=== PATIENT | female | born 1975 | race American Indian/Alaskan Native ===

== ENCOUNTER 2021-08-04 21:44 | Emergency (ER) | payer OTHER ==
--- NOTE | 2021-08-05 02:00 | Vascular Lab Report ---
DUPLEX DOPPLER LOWER EXTREMITY VEINS, BILATERAL INDICATION / CLINICAL INFORMATION: Non traumatic pain to left thigh, Hx DVT. TECHNIQUE: Duplex doppler imaging was performed through the veins of both lower extremities using katina ous compression and other maneuvers. COMPARISON: None available. FINDINGS: RIGHT COMMON FEMORAL VEIN: Negative. RIGHT FEMORAL VEIN: Negative. RIGHT POPLITEAL VEIN: Negative. RIGHT CALF VEINS: Negative. LEFT COMMON FEMORAL VEIN: Negative. LEFT FEMORAL VEIN: Negative. LEFT POPLITEAL VEIN: Negative. LEFT CALF VEINS: Negative. ADDITIONAL FINDINGS: None. IMPRESSION: 1. No sonographic evidence for DVT in either lower extremity. Signer Name: Ar Baker II, MD Signed: 08/05/2021 1:55 AM Workstation Name: [id number]
--- NOTE | 2021-08-05 02:15 | Emergency Department Report ---
ED Extremity Problem HPI - General Chief complaint: Extremity Injury, Lower Stated complaint: LEG PAIN (HISTORY OF BLOOD CLOTS) Source: patient Mode of arrival: Ambulatory Limitations: No Limitations - History of Present Illness Initial comments: Patient is a 46-year-old -Irish female with a history of DVT who presents to the ED with complaint of acute onset persistent bilateral thigh pain radiates to the lower legs for the last 3 days. Patient states that the pain is especially worse with movement but also is persistent even with rest. Patient denies fall, traumatic injury, chest pain or shortness of breath, nausea and vomiting, numbness and tingling or weakness of lower extremities bilaterally, low back pain, hip pain, fever, chills, heavy lifting, dysuria, urinary frequency and urgency, nausea vomiting or abdominal pain. MD Complaint: extremity pain (Bilateral thigh pain) -: Sudden, days(s) (3) Location: bilateral lower extremity History of Same: Yes (Chronic recurrent DVT) -: Yes myalgia, Yes arthralgia, No associated dyspnea, No associated chest pain Radiation: distal Severity scale (0 -10): 7 Quality: aching, sharp Consistency: constant Improves with: nothing Worsens with: nothing Associated Symptoms: denies other symptoms, myalgias, arthralgias. denies: chest pain, shortness of breath, fever, rash - Related Data Previous Rx's Medication Instructions Recorded Last Taken Type Naproxen 500 mg PO Q12H PRN #30 tab 08/05/21 Unknown Rx methocarbamoL [Methocarbamol] 750 mg PO Q8H PRN #30 tab 08/05/21 Unknown Rx predniSONE [Deltasone] 40 mg PO QDAY #10 tab 08/05/21 Unknown Rx Allergies Allergy/AdvReac Type Severity Reaction Status Date / Time No Known Allergies Allergy Verified 08/04/21 23:39 ED Review of Systems ROS: Stated complaint: LEG PAIN (HISTORY OF BLOOD CLOTS) Other details as noted in HPI Constitutional: denies: chills, fever Eyes: denies: eye pain, eye discharge, vision change ENT: denies: ear pain, throat pain Respiratory: denies: cough, shortness of breath, wheezing Cardiovascular: denies: chest pain, palpitations Endocrine: no symptoms reported Gastrointestinal: denies: abdominal pain, nausea, vomiting, diarrhea Genitourinary: denies: urgency, dysuria, discharge Musculoskeletal: arthralgia (Bilateral thigh pain). denies: back pain, joint swelling Skin: denies: rash, lesions Neurological: denies: headache, weakness, paresthesias Psychiatric: denies: anxiety, depression Hematological/Lymphatic: denies: easy bleeding, easy bruising ED Past Medical Hx - Past Medical History Previous Medical History?: Yes Hx Deep Vein Thrombosis: Yes (Left leg) Additional medical history: Blood Clots in Left lower Ext - Surgical History Past Surgical History?: Yes Additional Surgical History: Tubal - Medications Home Medications: Home Medications Medication Instructions Recorded Confirmed Last Taken Type Naproxen 500 mg PO Q12H PRN #30 tab 08/05/21 Unknown Rx methocarbamoL [Methocarbamol] 750 mg PO Q8H PRN #30 tab 08/05/21 Unknown Rx predniSONE [Deltasone] 40 mg PO QDAY #10 tab 08/05/21 Unknown Rx ED Physical Exam - General Limitations: No Limitations General appearance: alert, in no apparent distress - Head Head exam: Present: atraumatic, normocephalic, normal inspection - Eye Eye exam: Present: normal appearance, PERRL, EOMI Pupils: Present: normal accommodation - ENT ENT exam: Present: normal exam, normal orophraynx, mucous membranes moist, TM's normal bilaterally, normal external ear exam - Neck Neck exam: Present: normal inspection, full ROM. Absent: tenderness - Respiratory Respiratory exam: Present: normal lung sounds bilaterally. Absent: respiratory distress, wheezes, rales, rhonchi, chest wall tenderness, accessory muscle use, decreased breath sounds, prolonged expiratory - Cardiovascular Cardiovascular Exam: Present: regular rate, normal rhythm, normal heart sounds. Absent: systolic murmur, diastolic murmur, rubs, gallop - GI/Abdominal GI/Abdominal exam: Present: soft, normal bowel sounds. Absent: tenderness, guarding, hyperactive bowel sounds, hypoactive bowel sounds, organomegaly - Extremities Exam Extremities exam: Present: normal inspection, full ROM, tenderness (Palpable bilateral thigh tenderness), normal capillary refill. Absent: pedal edema, joint swelling, calf tenderness - Back Exam Back exam: Present: normal inspection, full ROM. Absent: tenderness, CVA tenderness (R), CVA tenderness (L), muscle spasm, paraspinal tenderness - Neurological Exam Neurological exam: Present: alert, oriented X3, CN II-XII intact, normal gait, reflexes normal - Psychiatric Psychiatric exam: Present: normal affect, normal mood, anxious - Skin Skin exam: Present: warm, dry, intact, normal color. Absent: rash ED Course Vital Signs 08/04/21 23:39 Temperature 98.7 F Pulse Rate 79 Respiratory 16 Rate Blood Pressure 147/80 [Right] O2 Sat by Pulse 97 Oximetry ED Medical Decision Making - Radiology Data Radiology results: report reviewed, image reviewed [facility] [address] [place] [address] Vascular Lab Report Signed Patient: JASS JENKINS MR#: [id number] : 1975 Acct:[id number] Age/Sex: 46 / F ADM Date: 08/04/21 Loc: ED Attending Dr: Ordering Physician: CLARE RAMIREZ Date of Service: 08/04/21 Procedure(s): VL venous duplex LE BILAT Accession Number(s): [id number] cc: CLARE RAMIREZ DUPLEX DOPPLER LOWER EXTREMITY VEINS, BILATERAL INDICATION / CLINICAL INFORMATION: Non traumatic pain to left thigh, Hx DVT. TECHNIQUE: Duplex doppler imaging was performed through the veins of both lower extremities using venous compression and other maneuvers. COMPARISON: None available. FINDINGS: RIGHT COMMON FEMORAL VEIN: Negative. RIGHT FEMORAL VEIN: Negative. RIGHT POPLITEAL VEIN: Negative. RIGHT CALF VEINS: Negative. LEFT COMMON FEMORAL VEIN: Negative. LEFT FEMORAL VEIN: Negative. LEFT POPLITEAL VEIN: Negative. LEFT CALF VEINS: Negative. ADDITIONAL FINDINGS: None. IMPRESSION: 1. No sonographic evidence for DVT in either lower extremity. Signer Name: Rita Medley II, MD Signed: 08/05/2021 1:55 AM Workstation Name: [id number] Transcribed By: KAJAL Dictated By: RITA MEDLEY II, MD Electronically Authenticated By: RITA MEDLEY II, MD Signed Date/Time: 08/05/21154 DD/ 4 TD/TT: - Medical Decision Making This is a 46-year-old -Irish female with a history of DVT who presents to the ED with complaint of acute onset persistent bilateral thigh pain radiates to the lower legs for the last 3 days. Patient states that the pain is especially worse with movement but also is persistent even with rest. In the ED, patient is alert and oriented x3 and is not in any distress. Patient was treated in the ED for pain, patient is hemodynamically stable. Bilateral lower extremity Doppler ultrasound showed no sonographic evidence of DVT. On reevaluation, patient's pain is well controlled medication. Patient will discharge home on medications and advised to follow-up with her primary care physician in 7 to 10 days for reevaluation return to the ED immediately if symptoms get worse - Differential Diagnosis DVT; Muscle strain; Muscle spasm; musculoskeletal pain Critical care attestation.: If time is entered above; I have spent that time in minutes in the direct care of this critically ill patient, excluding procedure time. ED Disposition Clinical Impression: Spasm of muscle of lower back, Musculoskeletal pain Muscle strain of lower leg Qualifiers: Encounter type: initial encounter Laterality: unspecified laterality Qualified Code(s): S86.919A - Strain of unspecified muscle(s) and tendon(s) at lower leg level, unspecified leg, initial encounter Disposition: HOME / SELF CARE / HOMELESS Is pt being admited?: No Does the pt Need Aspirin: No Condition: Stable Instructions: Muscle Cramps and Spasms, [id number], Muscle Strain, [id number], Musculoskeletal Pain Additional Instructions: The bilateral lower extremity Doppler ultrasound showed no sonographic evidence of DVT. Therefore your pain is most likely due to musculoskeletal muscle spasm or muscle strain. Therefore take medications with food, drink plenty of fluids and follow-up with your primary care physician in 7 to 10 days for reevaluation or return to the ED immediately if symptoms get worse with Prescriptions: predniSONE [Deltasone] 40 mg PO QDAY #10 tab methocarbamoL [Methocarbamol] 750 mg PO Q8H PRN #30 tab PRN Reason: Muscle Spasm Naproxen 500 mg PO Q12H PRN #30 tab PRN Reason: Pain , Severe (7-10) Referrals: ROSALBA STEVENS MD [Primary Care Provider] - 3-5 Days Forms: Work/School Release Form(ED) Time of Disposition: 02:17 Print Language: FRISIAN
[2021-08-05] MEDS ORDERED: ONDANSETRON 4 MG ODT TAB PO ONE (02:21)
[2021-08-05] MEDS ORDERED: oxyCODONE /ACETAMINOPHEN 5-325MG TAB PO ONE (02:21)
[2021-08-05] MEDS ORDERED: IBUPROFEN 600 MG TAB PO ONE (02:21)
[2021-08-05 03:02] VITALS: BP 132/68
== END 2021-08-05 03:02 | disposition home or self-care (01) ==
LOC: ED 21:44
DX: S86.919A Strain of unspecified muscle(s) and tendon(s) at lower leg level, unspecified leg, initial encounter (principal); M62.830 Muscle spasm of back; X58.XXXA Exposure to other specified factors, initial encounter; Y93.89 Activity, other specified; Y92.89 Other specified places as the place of occurrence of the external cause; Y99.8 Other external cause status
CPT/HCPCS: 93970; 99283; J3490; Q0162